=== PATIENT | female | born 1970 | race Caucasian/White ===

== ENCOUNTER → 2020-02-21 | Outpatient (CLI) | payer BC ==
[~2020-02-21] MED LIST: ASCO10004 PO; CHOL10003 PO; MAGN400T9 PO; MELA1TAB15 PO; MULT-658 PO; Trintellix PO; biotin PO; l-theanine PO
[2020-02-21 14:06] LABS: BASOPHILS # (AUTO) 0.02 x10^3/uL (0-0.1); BASOPHILS % (AUTO) 0 % (0-1); EOSINOPHILS # (AUTO) 0.15 x10^3/uL (0-0.4); EOSINOPHILS % (AUTO) 2 % (1-7); LYMPHOCYTES # (AUTO) 1.83 x10^3/uL (1-3.4); LYMPHOCYTES % (AUTO) 20 % (22-44); MD NO; MEAN CORPUSCULAR HGB CONC 33.4 g/dL (32.4-35.8); MEAN CORPUSCULAR VOLUME 89.7 fL (80-100); MEAN PLATELET VOLUME 8.3 fL (7.4-10.4); MONOCYTES % (AUTO) 6 % (2-9); NEUTROPHILS # (AUTO) 6.46 x10^3/uL (1.8-6.8); NEUTROPHILS % (AUTO) 72 % (42-75); PLATELET COUNT 321 x10^3/uL (130-400); RED BLOOD COUNT 5.03 x10^6/uL (3.82-5.3); RED CELL DISTRIBUTION WIDTH 14.2 % (9.6-15.2)
[2020-02-21 14:18] LABS: ALANINE AMINOTRANSFERASE 29 U/L (12-78); ANION GAP 4 mmol/L (5-15); CALCIUM 9.1 mg/dL (8.5-10.1); CHLORIDE 110 mmol/L (98-107); CREATININE 0.75 mg/dL (0.55-1.02)
[2020-02-21 14:22] LABS: ALKALINE PHOSPHATASE 63 U/L (45-117); BILIRUBIN,TOTAL 0.3 mg/dL (0.2-1.0); TOTAL PROTEIN 6.8 g/dL (6.4-8.2)
[2020-02-21 14:35] LABS: MICROSCOPIC NOT IND
== END | disposition home or self-care (01) ==
LOC: STAR 13:14
PROVIDERS: ATTEND Obstetrics & Gynecology Gynecology
DX: Z01.818 Encounter for other preprocedural examination (principal); Z11.59 Encounter for screening for other viral diseases; M41.85 Other forms of scoliosis, thoracolumbar region
CPT/HCPCS: 36415; 71046; 80053; 81003; 84703; 85025; 87635; 93005

== ENCOUNTER 2020-02-25 07:57 | Day surgery (SDC) | payer BC ==
[2020-02-21 13:43] VITALS: BP 113/68
[~2020-02-25] VITALS: Ht 162.6 cm; Wt 82.4 kg
[2020-02-25] MEDS ORDERED: LACTATED RINGERS 1,000 ML IV SCH (08:09)
[2020-02-25] MEDS ORDERED: CHLORHEXIDINE 15 ML UDC MM ONE (08:30)
[2020-02-25 08:43] LABS: HCG UR SG 1.021 (1.003-1.030)
[2020-02-25] MEDS ORDERED: ACETAMINOPHEN 500 MG TABLET PO ONE (09:00)
[2020-02-25] MEDS ORDERED: FAMOTIDINE 20 MG TABLET PO ONE (09:00)
[2020-02-25] MEDS ORDERED: LIDOCAINE 1%-EPI 1:100K, 20ML INFIL ONE (09:19)
[2020-02-25] MEDS ORDERED: PROMETHAZINE 25 MG/ML, 1ML IVPush PRN (09:30)
[2020-02-25] MEDS ORDERED: ONDANSETRON 2MG/ML, 2ML IVPush PRN (09:30)
[2020-02-25] MEDS ORDERED: OXYcodone 5 MG/5 ML ORAL.SOL UDC PO PRN (09:30)
[2020-02-25] MEDS ORDERED: hydrALAzine 20 MG/ML, 1ML IV PRN (09:30)
[2020-02-25] MEDS ORDERED: MEPERIDINE/PF 25MG/0.5ML IVPush PRN (09:30)
[2020-02-25] MEDS ORDERED: LABETALOL 5MG/ML, 20ML IV PRN (09:30)
[2020-02-25] MEDS ORDERED: ONDANSETRON 2MG/ML, 2ML ONE (10:44)
[2020-02-25] MEDS ORDERED: CEFAZOLIN 1,000 MG ONE (10:44)
[2020-02-25] MEDS ORDERED: DEXAMETHASONE 4 MG/ML, 1ML ONE (10:44)
[2020-02-25] MEDS ORDERED: PROPOFOL 10 MG/ML, 20ML ONE (10:44)
[2020-02-25] MEDS ORDERED: OXYcodone 5 MG/5 ML ORAL.SOL UDC ONE (10:53)
[2020-02-25] MEDS ORDERED: FENTANYL PF 100 MCG/2ML ONE (10:53)
[2020-02-25] MEDS ORDERED: MEPERIDINE/PF 25MG/ML,1ML ONE (10:53)
[2020-02-25] MEDS: FENTANYL PF 100 MCG/2ML IV PRN ×3 (11:04→11:33)
[2020-02-25] MEDS: HYDROmorphone 1 MG/ML, 1ML INJ IVPush PRN ×3 (12:10→14:25)
== END 2020-02-25 18:50 | disposition home or self-care (01) ==
LOC: OUT 07:57
PROVIDERS: ATTEND Obstetrics & Gynecology Gynecology
DX: N92.0 Excessive and frequent menstruation with regular cycle (principal); N94.6 Dysmenorrhea, unspecified; D25.9 Leiomyoma of uterus, unspecified; N73.6 Female pelvic peritoneal adhesions (postinfective); N35.92 Unspecified urethral stricture, female; N88.8 Other specified noninflammatory disorders of cervix uteri; D25.1 Intramural leiomyoma of uterus; Z79.899 Other long term (current) drug therapy; Z88.0 Allergy status to penicillin; Z98.51 Tubal ligation status
CPT/HCPCS: 36415; 58262; 81025; 85014; 88307; J0690; J1100; J1170; J2175; J2250; J2405; J2704; J3010; J3490; J7120